=== PATIENT | female | born 1970 | race African-American/Black ===

== ENCOUNTER 2016-07-19 20:12 | Emergency (ER) | payer BC ==
[~2016-07-19] VITALS: Ht 154.9 cm; Wt 88.1 kg
[~2016-07-19 20:12] MED LIST: ENDOCET 5-3251 EACH PO; HYDROCHLOROTHIA25 MG PO; NOHOMEMEDS; Omega III EPA + DHA PO; THERAGRAN1 TABLET PO
[2016-07-19 23:08] LABS: MCH 34.9 PG (29.0-34.0); MCHC 33.9 G/DL (30.0-36.0); PLATELET COUNT 184 K/uL (156-360); RBC DIS.WIDTH-CV 12.9 % (11.8-14.6); RBC DIS.WIDTH-SD 49.1 % (39-53); RED BLOOD COUNT 3.98 M/uL (3.80-5.20)
[2016-07-19 23:20] LABS: CHLORIDE 103 mEq/L (99-109); SODIUM 137 mEq/L (136-147)
[2016-07-19 23:22] LABS: GLUCOSE 84 mg/dL (70-99)
[2016-07-19 23:23] LABS: ANION GAP 13 MEQ/L (2-14)
[2016-07-19 23:24] LABS: TOTAL BILIRUBIN 0.5 mg/dL (0.0-1.0)
[2016-07-19 23:26] LABS: ALKALINE PHOSPHATASE 77 IU/L (3-129); GFR ESTIMATE (CALCULATED) > 59 mL/min/
[2016-07-19 23:27] LABS: UREA NITROGEN (BUN) 10 mg/dL (9-23)
[2016-07-19 23:33] LABS: PROTHROMBIN TIME 9.9 (9.2-11.2); PTT 24.5 (25-32)
[2016-07-19 23:45] VITALS: BP 163/106
== END 2016-07-19 23:46 | disposition home or self-care (01) ==
LOC: EME 20:12
PROVIDERS: Physician Assistant
DX: R21 Rash and other nonspecific skin eruption (principal); Z91.013 Allergy to seafood
CPT/HCPCS: 80053; 85027; 85610; 85730; 99281; 99283

== ENCOUNTER 2017-03-20 17:22 | Emergency (ER) | payer BC ==
[~2017-03-20] VITALS: Ht 154.9 cm; Wt 77.7 kg
[2017-03-20 21:47] VITALS: BP 155/97
== END 2017-03-20 21:58 | disposition home or self-care (01) ==
LOC: EME 17:22
DX: B34.9 Viral infection, unspecified (principal)
CPT/HCPCS: 71046; 87651 90; 99281; 99284; J1885; J2405; J7030

== ENCOUNTER 2017-04-14 18:56 | Inpatient (IN) | payer BC ==
[~2017-04-14] VITALS: Ht 154.9 cm; Wt 103.8 kg
[2017-04-14 21:52] LABS: ALBUMIN 2.7 g/dL (3.2-4.8); CHLORIDE 100 mEq/L (99-109); POTASSIUM 2.7 mEq/L (3.7-5.4); SODIUM 137 mEq/L (136-147)
[2017-04-14 21:55] LABS: GLUCOSE 103 mg/dL (70-99); TOTAL PROTEIN 5.9 g/dL (6.4-8.3)
[2017-04-14 21:58] LABS: ALKALINE PHOSPHATASE 192 IU/L (3-129); SERUM ETHYL ALCOHOL < 10 mg/dL
[2017-04-14 21:59] LABS: CREATININE 0.8 mg/dL (0.6-1.3); GFR ESTIMATE (CALCULATED) > 59 mL/min/
[2017-04-14 22:00] LABS: AST (GOT) 391 IU/L (2-34); UREA NITROGEN (BUN) 3 mg/dL (9-23)
[2017-04-14 22:01] LABS: ALT (GPT) 154 IU/L (3-49)
[2017-04-14 22:02] LABS: LIPASE 30 U/L (1.0-51.0)
[2017-04-14 22:04] LABS: MAGNESIUM 0.5 mg/dL (1.3-2.7)
[2017-04-14 22:13] LABS: BASOPHIL (%) 0.5 % (0-1); EOSINOPHIL (%) 0.2 % (0-5); HEMATOCRIT 32.2 % (36.0-46.0); IMMATURE GRANULOCYTE (%) 0.3 % (0.0-0.7); LYMPHOCYTE (%) 15.8 % (15-42); LYMPHOCYTE COUNT 0.9 K/uL (1.0-2.8); MCHC 37.3 G/DL (30.0-36.0); MCV 93.9 FL (83-99); MONOCYTE (%) 10.6 % (3-12); MONOCYTE COUNT 0.6 K/uL (0-0.8); NEUTROPHIL (%) 72.6 % (45-76); NEUTROPHIL COUNT 4.2 K/uL (1.8-6.4); NRBC (%) 0.3 /100 WBC (0-0); PLATELET COUNT 194 K/uL (156-360); RBC DIS.WIDTH-CV 13.3 % (11.8-14.6); RBC DIS.WIDTH-SD 45.4 % (39-53); RED BLOOD COUNT 3.43 M/uL (3.80-5.20); WHITE BLOOD COUNT 5.8 K/uL (4.1-10.2)
[2017-04-14 22:36] LABS: TROP-I INTERPRETATION NEGATIVE; TROPONIN-I < 0.01 ng/mL (0.0-0.30)
[2017-04-15] VITALS (9 sets, daily range): BP systolic 104–120; BP diastolic 72–86
[2017-04-15] MEDS ORDERED: COMPAZINE10 MG PO (00:41)
[2017-04-15] MEDS ORDERED: PROAIR HFA8.5 GM IH (00:42)
[2017-04-15 00:48] LABS: CARBON DIOXIDE (BICARBONATE) 13.7 MEQ/L (20-31)
[2017-04-15 00:55] LABS: MAGNESIUM 1.7 mg/dL (1.3-2.7)
[2017-04-15 01:33] LABS: CHLORIDE 101 mEq/L (99-109); POTASSIUM 2.8 mEq/L (3.7-5.4); SODIUM 134 mEq/L (136-147)
[2017-04-15 01:34] LABS: GLUCOSE 103 mg/dL (70-99)
[2017-04-15 01:38] LABS: CREATININE 0.8 mg/dL (0.6-1.3); GFR ESTIMATE (CALCULATED) > 59 mL/min/
[2017-04-15 01:39] LABS: UREA NITROGEN (BUN) 3 mg/dL (9-23)
[2017-04-15 03:07] LABS: APPEARANCE SL.HAZY ((CLEAR)); BILIRUBIN SMALL; BLOOD SMALL; COLOR AMBER ((YELLOW)); GLUCOSE (STRIP) NEGATIVE; KETONES 5; LEUKOCYTES NEGATIVE; NITRITE NEGATIVE; PROTEIN (STRIP) 30
[2017-04-15 03:15] LABS: AMPHETAMINE NEGATIVE (500 ng/mL); BARBITURATES NEGATIVE (200 ng/mL); BENZODIAZEPINES PRESUMPTIVE POSITIVE (150 ng/mL); BUPRENORPHINE NEGATIVE (10 ng/mL); COCAINE NEGATIVE (150 ng/mL); METHADONE NEGATIVE (200 ng/mL); METHAMPHETAMINE NEGATIVE (500 ng/mL); OPIATES (MORPHINE) NEGATIVE (100 ng/mL); OXYCODONE NEGATIVE (100 ng/mL); PHENCYCLIDINE NEGATIVE (25 ng/mL); PROPOXYPHENE NEGATIVE (300 ng/mL); THC CANNABINOIDS NEGATIVE (50 ng/mL); TRICYCLIC ANTIDEPRESSANTS NEGATIVE (300 ng/mL)
[2017-04-15 03:35] LABS: EPITHELIAL CELLS RARE /HPF; MUCUS 2+ /LPF; RED BLOOD CELLS 0-5 /HPF (0-5); WHITE BLOOD CELLS 0-5 /HPF (0-5)
[2017-04-15 03:36] LABS: BACTERIA 1+ /HPF
[2017-04-15 03:38] LABS: SPECIFIC GRAVITY 1.065 (1.000-1.030)
[2017-04-15 05:04] LABS: BENZODIAZEPINES, URINE SCREEN Negative (200 ng/mL)
[2017-04-15 12:16] LABS: CHLORIDE 102 MEQ/L (99-109); CREATININE 0.8 MG/DL (0.6-1.3); GFR ESTIMATE (CALCULATED) > 59 mL/min/; MAGNESIUM 1.8 mg/dl (1.3-2.7); PHOSPHORUS 1.9 mg/dL (2.5-4.9); SODIUM 135 MEQ/L (136-147); UREA NITROGEN (BUN) 3 mg/dL (9-23)
[2017-04-15 12:17] LABS: GLUCOSE 161 mg/dL (70-99)
[2017-04-16] VITALS (15 sets, daily range): BP systolic 101–123; BP diastolic 71–98
[2017-04-16 05:20] LABS: C DIFF TOXIN NEGATIVE (NEGATIVE)
[2017-04-16 08:16] LABS: ALBUMIN 2.4 G/DL (3.2-4.8); ALKALINE PHOSPHATASE 162 IU/L (3-129); ALT (GPT) 127 IU/L (3-49); AST (GOT) 320 IU/L (2-34); CHLORIDE 108 MEQ/L (99-109); CREATININE 0.7 MG/DL (0.6-1.3); GFR ESTIMATE (CALCULATED) > 59 mL/min/; PHOSPHORUS 1.4 mg/dL (2.5-4.9); POTASSIUM 3.5 MEQ/L (3.7-5.4); SODIUM 136 MEQ/L (136-147); TOTAL BILIRUBIN 2.5 MG/DL (0.0-1.0); TOTAL PROTEIN 5.2 G/DL (6.4-8.3); UREA NITROGEN (BUN) 3 mg/dL (9-23)
[2017-04-16 08:20] LABS: GLUCOSE 117 mg/dL (70-99); MAGNESIUM 1.3 mg/dl (1.3-2.7)
[2017-04-16 08:31] LABS: LIPASE 29 U/L (1.0-51.0)
[2017-04-16 09:09] LABS: BASE EXCESS -12.2 mEq/L (-3 to +3); CARBOXY HGB 1.6 % (0-5); METHEMOGLOBIN 1.5 % (0-1.5); PCO2 19 mm Hg (35-45); PO2 110 mm Hg (80-100); pH 7.37 (7.35-7.45)
[2017-04-16 09:10] LABS: COMMENTS - BLOOD GASES A+C+; SITE RR
[2017-04-17] VITALS (14 sets, daily range): BP systolic 99–120; BP diastolic 66–89
[2017-04-17 04:59] LABS: BASOPHIL (%) 1.1 % (0-1); EOSINOPHIL (%) 2.5 % (0-5); EOSINOPHIL COUNT 0.1 K/uL (0-0.3); HEMATOCRIT 28.5 % (36.0-46.0); HEMOGLOBIN 10.4 G/DL (11.9-15.5); IMMATURE GRANULOCYTE (%) 1.1 % (0.0-0.7); LYMPHOCYTE (%) 34.7 % (15-42); LYMPHOCYTE COUNT 1.3 K/uL (1.0-2.8); MCH 35.4 PG (29.0-34.0); MCHC 36.5 G/DL (30.0-36.0); MCV 96.9 FL (83-99); MONOCYTE (%) 10.7 % (3-12); MONOCYTE COUNT 0.4 K/uL (0-0.8); NEUTROPHIL (%) 49.9 % (45-76); NEUTROPHIL COUNT 1.8 K/uL (1.8-6.4); PLATELET COUNT 169 K/uL (156-360); RBC DIS.WIDTH-CV 14.5 % (11.8-14.6); RBC DIS.WIDTH-SD 50.9 % (39-53); RED BLOOD COUNT 2.94 M/uL (3.80-5.20); WHITE BLOOD COUNT 3.7 K/uL (4.1-10.2)
[2017-04-17 05:19] LABS: ALBUMIN 2.2 g/dL (3.2-4.8); SODIUM 137 mEq/L (136-147)
[2017-04-17 05:23] LABS: TOTAL BILIRUBIN 2.4 mg/dL (0.0-1.0)
[2017-04-17 05:25] LABS: ALKALINE PHOSPHATASE 178 IU/L (3-129); CREATININE 0.6 mg/dL (0.6-1.3); GFR ESTIMATE (CALCULATED) > 59 mL/min/
[2017-04-17 05:26] LABS: UREA NITROGEN (BUN) 2 mg/dL (9-23)
[2017-04-17 05:27] LABS: AST (GOT) 266 IU/L (2-34); DIRECT BILIRUBIN 1.9 mg/dL (0.0-0.3)
[2017-04-17 05:28] LABS: ALT (GPT) 132 IU/L (3-49)
[2017-04-17 05:37] LABS: CHLORIDE 113 mEq/L (99-109); GLUCOSE 78 mg/dL (70-99); TOTAL PROTEIN 4.7 g/dL (6.4-8.3)
[2017-04-18] VITALS (13 sets, daily range): BP systolic 94–126; BP diastolic 70–98
[2017-04-18 06:44] LABS: ALBUMIN 2.2 G/DL (3.2-4.8); ALKALINE PHOSPHATASE 162 IU/L (3-129); ALT (GPT) 104 IU/L (3-49); AST (GOT) 199 IU/L (2-34); CHLORIDE 111 MEQ/L (99-109); CREATININE 0.6 MG/DL (0.6-1.3); DIRECT BILIRUBIN 1.5 mg/dL (0.0-0.3); GFR ESTIMATE (CALCULATED) > 59 mL/min/; GLUCOSE 89 mg/dL (70-99); PHOSPHORUS 1.6 mg/dL (2.5-4.9); POTASSIUM 3.1 MEQ/L (3.7-5.4); SODIUM 138 MEQ/L (136-147); TOTAL BILIRUBIN 2.5 MG/DL (0.0-1.0); TOTAL PROTEIN 4.9 G/DL (6.4-8.3); UREA NITROGEN (BUN) 2 mg/dL (9-23)
[2017-04-19 07:00] VITALS: BP 107/84
[2017-04-19 09:57] LABS: ALBUMIN 2.1 G/DL (3.2-4.8); ALKALINE PHOSPHATASE 181 IU/L (3-129); ALT (GPT) 107 IU/L (3-49); AST (GOT) 219 IU/L (2-34); CHLORIDE 114 MEQ/L (99-109); CREATININE 0.5 MG/DL (0.6-1.3); GFR ESTIMATE (CALCULATED) > 59 mL/min/; GLUCOSE 86 mg/dL (70-99); PHOSPHORUS 1.3 mg/dL (2.5-4.9); POTASSIUM 3.2 MEQ/L (3.7-5.4); SODIUM 140 MEQ/L (136-147); TOTAL BILIRUBIN 2.5 MG/DL (0.0-1.0); TOTAL PROTEIN 4.7 G/DL (6.4-8.3); UREA NITROGEN (BUN) 2 mg/dL (9-23)
[2017-04-19 13:16] VITALS: BP 118/92
[2017-04-19 16:00] VITALS: BP 119/91
[2017-04-19 19:00] VITALS: BP 99/83
[2017-04-19 22:00] VITALS: BP 106/73
[2017-04-20] VITALS (7 sets, daily range): BP systolic 90–119; BP diastolic 58–85
[2017-04-20 06:16] LABS: BASOPHIL (%) 1.2 % (0-1); EOSINOPHIL (%) 2.9 % (0-5); EOSINOPHIL COUNT 0.1 K/uL (0-0.3); HEMATOCRIT 29.3 % (36.0-46.0); HEMOGLOBIN 10.4 G/DL (11.9-15.5); IMMATURE GRANULOCYTE (%) 0.3 % (0.0-0.7); LYMPHOCYTE (%) 30.5 % (15-42); LYMPHOCYTE COUNT 1.1 K/uL (1.0-2.8); MCH 34.8 PG (29.0-34.0); MCHC 35.5 G/DL (30.0-36.0); MONOCYTE (%) 18.7 % (3-12); MONOCYTE COUNT 0.7 K/uL (0-0.8); NEUTROPHIL (%) 46.4 % (45-76); NEUTROPHIL COUNT 1.6 K/uL (1.8-6.4); PLATELET COUNT 210 K/uL (156-360); RBC DIS.WIDTH-CV 17.2 % (11.8-14.6); RBC DIS.WIDTH-SD 59.7 % (39-53); RED BLOOD COUNT 2.99 M/uL (3.80-5.20); WHITE BLOOD COUNT 3.5 K/uL (4.1-10.2)
[2017-04-20 06:57] LABS: ALBUMIN 1.9 G/DL (3.2-4.8); ALKALINE PHOSPHATASE 176 IU/L (3-129); ALT (GPT) 99 IU/L (3-49); AST (GOT) 205 IU/L (2-34); CHLORIDE 114 MEQ/L (99-109); CREATINE KINASE 489 IU/L (1-294); CREATININE 0.6 MG/DL (0.6-1.3); GFR ESTIMATE (CALCULATED) > 59 mL/min/; GLUCOSE 77 mg/dL (70-99); MAGNESIUM 1.4 mg/dl (1.3-2.7); PHOSPHORUS 1.9 mg/dL (2.5-4.9); POTASSIUM 3.3 MEQ/L (3.7-5.4); SODIUM 142 MEQ/L (136-147); TOTAL BILIRUBIN 2.6 MG/DL (0.0-1.0); TOTAL PROTEIN 4.5 G/DL (6.4-8.3); UREA NITROGEN (BUN) 2 mg/dL (9-23)
[2017-04-20 11:44] LABS: HEPATITIS B SURFACE ANTIGEN Nonreactive; HEPATITIS C ANTIBODY Nonreactive
[2017-04-20 11:45] LABS: ANTI-HEPATITIS A VIRUS (IGM) Nonreactive
[2017-04-20 11:46] LABS: ANTI-HEPATITIS B CORE (IGM) Nonreactive
[2017-04-21] VITALS (8 sets, daily range): BP systolic 86–124; BP diastolic 55–88
[2017-04-21 06:01] LABS: HEMOGLOBIN 10.4 G/DL (11.9-15.5); MCH 34.4 PG (29.0-34.0); MCHC 34.7 G/DL (30.0-36.0); MCV 99.3 FL (83-99); PLATELET COUNT 247 K/uL (156-360); RBC DIS.WIDTH-SD 65.1 % (39-53); RED BLOOD COUNT 3.02 M/uL (3.80-5.20); WHITE BLOOD COUNT 3.5 K/uL (4.1-10.2)
[2017-04-21 06:50] LABS: CHLORIDE 112 MEQ/L (99-109); CREATINE KINASE 451 IU/L (1-294); CREATININE 0.6 MG/DL (0.6-1.3); GFR ESTIMATE (CALCULATED) > 59 mL/min/; GLUCOSE 90 mg/dL (70-99); POTASSIUM 3.4 MEQ/L (3.7-5.4); SODIUM 139 MEQ/L (136-147); UREA NITROGEN (BUN) 2 mg/dL (9-23)
[2017-04-21 06:51] LABS: MAGNESIUM 1.9 mg/dl (1.3-2.7); PHOSPHORUS 3.7 mg/dL (2.5-4.9)
[2017-04-21 07:54] LABS: INTACT PARATHYROID HORMONE 214 pg/mL (10-69)
[2017-04-22] VITALS: BP 100/66
[2017-04-22 04:00] VITALS: BP 111/80
[2017-04-22 05:42] LABS: HEMATOCRIT 28.6 % (36.0-46.0); HEMOGLOBIN 10.1 G/DL (11.9-15.5); MCH 34.9 PG (29.0-34.0); MCHC 35.3 G/DL (30.0-36.0); PLATELET COUNT 259 K/uL (156-360); RBC DIS.WIDTH-CV 18.2 % (11.8-14.6); RED BLOOD COUNT 2.89 M/uL (3.80-5.20); WHITE BLOOD COUNT 4.5 K/uL (4.1-10.2)
[2017-04-22 06:17] LABS: ALBUMIN 1.9 G/DL (3.2-4.8); ALKALINE PHOSPHATASE 169 IU/L (3-129); ALT (GPT) 82 IU/L (3-49); AST (GOT) 142 IU/L (2-34); CHLORIDE 110 MEQ/L (99-109); CHLORIDE 112 MEQ/L (99-109); CREATININE 0.6 MG/DL (0.6-1.3); GFR ESTIMATE (CALCULATED) > 59 mL/min/; GLUCOSE 95 mg/dL (70-99); GLUCOSE 96 mg/dL (70-99); PHOSPHORUS 4.3 mg/dL (2.5-4.9); POTASSIUM 3.8 MEQ/L (3.7-5.4); POTASSIUM 4.1 MEQ/L (3.7-5.4); SODIUM 141 MEQ/L (136-147); SODIUM 142 MEQ/L (136-147); TOTAL PROTEIN 4.7 G/DL (6.4-8.3); UREA NITROGEN (BUN) 3 mg/dL (9-23)
[2017-04-22 06:19] LABS: BASOPHIL (%) 1.1 % (0-1); BASOPHIL COUNT 0.1 K/uL (0-0.1); EOSINOPHIL (%) 2.9 % (0-5); EOSINOPHIL COUNT 0.1 K/uL (0-0.3); IMMATURE GRANULOCYTE (%) 0.2 % (0.0-0.7); LYMPHOCYTE (%) 31.5 % (15-42); LYMPHOCYTE COUNT 1.4 K/uL (1.0-2.8); MONOCYTE (%) 20.8 % (3-12); MONOCYTE COUNT 0.9 K/uL (0-0.8); NEUTROPHIL (%) 43.5 % (45-76); NEUTROPHIL COUNT 1.9 K/uL (1.8-6.4)
[2017-04-22 08:00] VITALS: BP 116/66
[2017-04-22 12:00] VITALS: BP 131/90
[2017-04-22 16:42] VITALS: BP 134/70
[2017-04-22 20:00] VITALS: BP 124/88
[2017-04-23 00:12] VITALS: BP 94/51
[2017-04-23 04:34] VITALS: BP 103/59
[2017-04-23 06:13] LABS: ALBUMIN 1.9 G/DL (3.2-4.8); CHLORIDE 112 MEQ/L (99-109); CREATININE 0.6 MG/DL (0.6-1.3); GFR ESTIMATE (CALCULATED) > 59 mL/min/; GLUCOSE 83 mg/dL (70-99); PHOSPHORUS 4.3 mg/dL (2.5-4.9); POTASSIUM 3.8 MEQ/L (3.7-5.4); SODIUM 143 MEQ/L (136-147); UREA NITROGEN (BUN) 3 mg/dL (9-23)
[2017-04-23 06:14] LABS: ALBUMIN 1.9 G/DL (3.2-4.8); ALKALINE PHOSPHATASE 177 IU/L (3-129); ALT (GPT) 71 IU/L (3-49); AST (GOT) 116 IU/L (2-34); CHLORIDE 111 MEQ/L (99-109); CREATININE 0.6 MG/DL (0.6-1.3); GFR ESTIMATE (CALCULATED) > 59 mL/min/; GLUCOSE 84 mg/dL (70-99); POTASSIUM 4.2 MEQ/L (3.7-5.4); SODIUM 142 MEQ/L (136-147); TOTAL BILIRUBIN 3.5 MG/DL (0.0-1.0); TOTAL PROTEIN 4.5 G/DL (6.4-8.3); UREA NITROGEN (BUN) 3 mg/dL (9-23)
[2017-04-23 08:35] VITALS: BP 97/59
[2017-04-23 12:28] VITALS: BP 104/63
[2017-04-23 16:13] VITALS: BP 115/59
[2017-04-23 19:20] VITALS: BP 110/62
[2017-04-24 00:11] VITALS: BP 106/55
[2017-04-24 05:09] VITALS: BP 110/60
[2017-04-24 05:42] LABS: INTER. NORMALIZED RATIO 1.4
[2017-04-24 05:45] LABS: PTT 36.6 SEC (25-37)
[2017-04-24 05:47] LABS: ALBUMIN 1.8 G/DL (3.2-4.8); ALKALINE PHOSPHATASE 153 IU/L (3-129); ALT (GPT) 64 IU/L (3-49); AST (GOT) 105 IU/L (2-34); CHLORIDE 109 MEQ/L (99-109); CREATININE 0.9 MG/DL (0.6-1.3); GFR ESTIMATE (CALCULATED) > 59 mL/min/; GLUCOSE 75 mg/dL (70-99); MAGNESIUM 1.3 mg/dl (1.3-2.7); POTASSIUM 3.4 MEQ/L (3.7-5.4); SODIUM 143 MEQ/L (136-147); TOTAL BILIRUBIN 3.5 MG/DL (0.0-1.0); TOTAL PROTEIN 4.7 G/DL (6.4-8.3); UREA NITROGEN (BUN) 3 mg/dL (9-23)
[2017-04-24 05:51] LABS: ALBUMIN 1.8 G/DL (3.2-4.8); CHLORIDE 108 MEQ/L (99-109); CREATININE 0.9 MG/DL (0.6-1.3); GFR ESTIMATE (CALCULATED) > 59 mL/min/; GLUCOSE 75 mg/dL (70-99); PHOSPHORUS 4.3 mg/dL (2.5-4.9); SODIUM 141 MEQ/L (136-147); UREA NITROGEN (BUN) 3 mg/dL (9-23)
[2017-04-24 05:59] LABS: POTASSIUM 3.3 MEQ/L (3.7-5.4)
[2017-04-24 07:44] VITALS: BP 100/59
[2017-04-24 11:29] VITALS: BP 103/61
[2017-04-24 15:45] VITALS: BP 104/56
[2017-04-24 19:45] VITALS: BP 110/60
[2017-04-25 05:58] LABS: ALBUMIN 1.8 G/DL (3.2-4.8); CHLORIDE 106 MEQ/L (99-109); CREATININE 0.9 MG/DL (0.6-1.3); GFR ESTIMATE (CALCULATED) > 59 mL/min/; GLUCOSE 79 mg/dL (70-99); POTASSIUM 3.7 MEQ/L (3.7-5.4); SODIUM 142 MEQ/L (136-147); UREA NITROGEN (BUN) 5 mg/dL (9-23)
[2017-04-25 08:37] LABS: ALKALINE PHOSPHATASE 153 IU/L (3-129); ALT (GPT) 65 IU/L (3-49); AST (GOT) 118 IU/L (2-34); DIRECT BILIRUBIN 2.3 mg/dL (0.0-0.3); TOTAL BILIRUBIN 3.6 MG/DL (0.0-1.0); TOTAL PROTEIN 4.7 G/DL (6.4-8.3)
[2017-04-25] MEDS ORDERED: LOPRESSOR25 MG PO (11:34)
[2017-04-25] MEDS ORDERED: SPIRONOLACTONE25 MG PO (11:34)
[2017-04-25] MEDS ORDERED: TRAMADOL HCL50 MG PO (11:34)
[2017-04-25] MEDS ORDERED: MAG-OXIDE400 MG PO (11:36)
[2017-04-25] MEDS ORDERED: Thiamine,Vitamin B1 PO (11:36)
[2017-04-25] MEDS ORDERED: FOLIC ACID1 MG PO (11:36)
[2017-04-25] MEDS ORDERED: PARICALCITOL1 MCG PO (11:37)
[2017-04-25] MEDS ORDERED: VITAMIN D2000 UNI1 PO (11:45)
[2017-04-25] MEDS ORDERED: LASIX80 MG PO (11:48)
[2017-04-25] MEDS ORDERED: K-DUR20 MEQ PO (11:49)
== END 2017-04-25 14:05 | DRG 432 ==
LOC: EME 18:56 → EDOF 04-15 03:22 → 4WEST 04-15 03:22 → 5SOUTH 04-15 03:22 → ENRESERV 04-15 03:24 → CANRESERV 04-15 03:24 → ENRESERV 04-15 03:41 → 5SOUTH 04-15 07:10 → ENRESERV 04-15 08:52 → 4WEST 04-15 12:39 → ENRESERV 04-22 18:48 → 4EAST 04-23 00:08 → ENRESERV 04-23 21:39 → 3EAST 04-23 23:47
PROVIDERS: Emergency Medicine; Hospitalist; Internal Medicine; Internal Medicine Nephrology; Student in an Organized Health Care Education/Training Program
DX: K70.10 Alcoholic hepatitis without ascites (principal); K52.9 Noninfective gastroenteritis and colitis, unspecified; F10.231 Alcohol dependence with withdrawal delirium; K70.0 Alcoholic fatty liver; K82.8 Other specified diseases of gallbladder; K85.20 Alcohol induced acute pancreatitis without necrosis or infection; E83.39 Other disorders of phosphorus metabolism; E43 Unspecified severe protein-calorie malnutrition; E83.42 Hypomagnesemia; E83.51 Hypocalcemia; E83.52 Hypercalcemia; E86.0 Dehydration; E87.2 Acidosis; E87.6 Hypokalemia; G47.30 Sleep apnea, unspecified; F33.1 Major depressive disorder, recurrent, moderate; E66.9 Obesity, unspecified; Z68.41 Body mass index [BMI] 40.0-44.9, adult; I10 Essential (primary) hypertension; J45.20 Mild intermittent asthma, uncomplicated; M25.552 Pain in left hip; R00.0 Tachycardia, unspecified; R60.0 Localized edema; R74.0 Nonspecific elevation of levels of transaminase and lactic acid dehydrogenase [LDH]; Z98.84 Bariatric surgery status
CPT/HCPCS: 36600; 71045; 74177; 76705; 80048; 80048 91; 80053; 80069; 80074; 80076; 81003; 82140; 82306; 82330; 82550; 82803; 83605; 83690; 83735; 83970; 84100; 84484; 84999; 85025; 85027; 85610; 85730; 87040; 87086; 87493; 87506; 87641; 93005; 97530 GO; 97530 GP; 99281; 99285; C1753; G0480; J0610; J1650; J1940; J2060; J2405; J3411; J3475; J3480; J7030; J7040; J7050; S0028

== ENCOUNTER 2017-04-25 10:29 | Inpatient (IN) | payer BC ==
[~2017-04-25] VITALS: Ht 154.9 cm; Wt 105.3 kg
[~2017-04-25 10:29] MED LIST changes: +COMPAZINE10 MG PO; +PROAIR HFA8.5 GM IH
[2017-04-25] MEDS ORDERED: LOPRESSOR25 MG PO (11:34)
[2017-04-25] MEDS ORDERED: TRAMADOL HCL50 MG PO (11:34)
[2017-04-25] MEDS ORDERED: SPIRONOLACTONE25 MG PO (11:34)
[2017-04-25] MEDS ORDERED: FOLIC ACID1 MG PO (11:36)
[2017-04-25] MEDS ORDERED: Thiamine,Vitamin B1 PO (11:36)
[2017-04-25] MEDS ORDERED: MAG-OXIDE400 MG PO (11:36)
[2017-04-25] MEDS ORDERED: PARICALCITOL1 MCG PO (11:37)
[2017-04-25] MEDS ORDERED: VITAMIN D2000 UNI1 PO (11:45)
[2017-04-25] MEDS ORDERED: LASIX80 MG PO (11:48)
[2017-04-25] MEDS ORDERED: K-DUR20 MEQ PO (11:49)
[2017-04-25 15:06] VITALS: BP 95/66
[2017-04-26 05:04] VITALS: BP 99/51
[2017-04-26 06:35] LABS: HEMATOCRIT 27.4 % (36.0-46.0); HEMOGLOBIN 9.2 G/DL (11.9-15.5); MCH 33.8 PG (29.0-34.0); MCHC 33.6 G/DL (30.0-36.0); MCV 100.7 FL (83-99); RBC DIS.WIDTH-SD 62.5 % (39-53); RED BLOOD COUNT 2.72 M/uL (3.80-5.20); WHITE BLOOD COUNT 4.4 K/uL (4.1-10.2)
[2017-04-26 07:07] LABS: PLATELET CLUMPS PRESENT - PLATELET COUNT APPEARS ADQ.; PLATELET COUNT UNABLE TO REPORT K/uL (156-360)
[2017-04-26 07:08] LABS: ALBUMIN 1.8 G/DL (3.2-4.8); ALKALINE PHOSPHATASE 149 IU/L (3-129); ALT (GPT) 58 IU/L (3-49); AST (GOT) 114 IU/L (2-34); CHLORIDE 105 MEQ/L (99-109); CREATININE 0.8 MG/DL (0.6-1.3); GFR ESTIMATE (CALCULATED) > 59 mL/min/; GLUCOSE 83 mg/dL (70-99); POTASSIUM 3.3 MEQ/L (3.7-5.4); SODIUM 142 MEQ/L (136-147); TOTAL BILIRUBIN 3.2 MG/DL (0.0-1.0); TOTAL PROTEIN 4.8 G/DL (6.4-8.3); UREA NITROGEN (BUN) 5 mg/dL (9-23)
[2017-04-26 15:35] VITALS: BP 118/51
[2017-04-27 05:34] VITALS: BP 95/57
[2017-04-27 06:52] LABS: ALBUMIN 1.9 G/DL (3.2-4.8); ALKALINE PHOSPHATASE 150 IU/L (3-129); ALT (GPT) 58 IU/L (3-49); AST (GOT) 121 IU/L (2-34); CHLORIDE 101 MEQ/L (99-109); CREATININE 0.8 MG/DL (0.6-1.3); GFR ESTIMATE (CALCULATED) > 59 mL/min/; GLUCOSE 96 mg/dL (70-99); MAGNESIUM 1.4 mg/dl (1.3-2.7); PHOSPHORUS 3.1 mg/dL (2.5-4.9); POTASSIUM 3.3 MEQ/L (3.7-5.4); UREA NITROGEN (BUN) 5 mg/dL (9-23)
[2017-04-27 06:53] LABS: SODIUM 133 MEQ/L (136-147); TOTAL BILIRUBIN 4.4 MG/DL (0.0-1.0)
[2017-04-27 15:31] VITALS: BP 122/54
[2017-04-28 04:49] VITALS: BP 99/57
[2017-04-28 06:04] LABS: ALBUMIN 1.9 G/DL (3.2-4.8); CREATININE 0.8 MG/DL (0.6-1.3); GFR ESTIMATE (CALCULATED) > 59 mL/min/; GLUCOSE 85 mg/dL (70-99); PHOSPHORUS 2.9 mg/dL (2.5-4.9); UREA NITROGEN (BUN) 6 mg/dL (9-23)
[2017-04-28 07:30] LABS: CHLORIDE 98 MEQ/L (99-109); POTASSIUM 3.5 MEQ/L (3.7-5.4); SODIUM 136 MEQ/L (136-147)
[2017-04-28 09:30] VITALS: BP 98/63
[2017-04-28 16:01] VITALS: BP 119/66
[2017-04-28 21:20] VITALS: BP 108/56
[2017-04-29 05:04] VITALS: BP 99/57
[2017-04-29 06:10] LABS: ALBUMIN 1.8 G/DL (3.2-4.8); CHLORIDE 102 MEQ/L (99-109); CREATININE 0.7 MG/DL (0.6-1.3); GFR ESTIMATE (CALCULATED) > 59 mL/min/; GLUCOSE 86 mg/dL (70-99); PHOSPHORUS 2.7 mg/dL (2.5-4.9); POTASSIUM 3.5 MEQ/L (3.7-5.4); SODIUM 139 MEQ/L (136-147); UREA NITROGEN (BUN) 6 mg/dL (9-23)
[2017-04-29 09:57] VITALS: BP 102/70
[2017-04-29 14:38] VITALS: BP 100/62
[2017-04-29 15:37] VITALS: BP 115/74
[2017-04-29 20:51] VITALS: BP 101/52
[2017-04-30 05:14] VITALS: BP 107/64
[2017-04-30 09:00] VITALS: BP 104/72
[2017-04-30 15:11] VITALS: BP 108/62
[2017-05-01 05:20] LABS: HEMATOCRIT 24.1 % (36.0-46.0); HEMOGLOBIN 8.1 G/DL (11.9-15.5); MCH 34.2 PG (29.0-34.0); MCHC 33.6 G/DL (30.0-36.0); MCV 101.7 FL (83-99); PLATELET COUNT 308 K/uL (156-360); RBC DIS.WIDTH-CV 16.5 % (11.8-14.6); RBC DIS.WIDTH-SD 61.1 % (39-53); RED BLOOD COUNT 2.37 M/uL (3.80-5.20)
[2017-05-01 06:14] VITALS: BP 103/59
[2017-05-01 07:03] VITALS: BP 100/58
[2017-05-01 07:07] LABS: ALBUMIN 1.7 G/DL (3.2-4.8); ALKALINE PHOSPHATASE 127 IU/L (3-129); ALT (GPT) 41 IU/L (3-49); AST (GOT) 93 IU/L (2-34); CHLORIDE 100 MEQ/L (99-109); CREATININE 0.6 MG/DL (0.6-1.3); DIRECT BILIRUBIN 2.4 mg/dL (0.0-0.3); GFR ESTIMATE (CALCULATED) > 59 mL/min/; GLUCOSE 92 mg/dL (70-99); IRON 80 MCG/DL (35-150); PHOSPHORUS 2.3 mg/dL (2.5-4.9); POTASSIUM 3.3 MEQ/L (3.7-5.4); SODIUM 136 MEQ/L (136-147); TOTAL BILIRUBIN 3.6 MG/DL (0.0-1.0); TOTAL PROTEIN 4.7 G/DL (6.4-8.3); TRANSFERRIN (TIBC) 75.5 mg/dL (215-380); TRANSFERRIN SATUR. 106 % (20-55); UREA NITROGEN (BUN) 5 mg/dL (9-23)
[2017-05-01 14:56] VITALS: BP 105/65
[2017-05-02 05:47] VITALS: BP 118/80
[2017-05-02 07:17] LABS: ALBUMIN 1.8 G/DL (3.2-4.8); CHLORIDE 101 MEQ/L (99-109); CREATININE 0.6 MG/DL (0.6-1.3); GFR ESTIMATE (CALCULATED) > 59 mL/min/; GLUCOSE 78 mg/dL (70-99); MAGNESIUM 1.6 mg/dl (1.3-2.7); PHOSPHORUS 3.1 mg/dL (2.5-4.9); POTASSIUM 3.6 MEQ/L (3.7-5.4); SODIUM 136 MEQ/L (136-147); UREA NITROGEN (BUN) 4 mg/dL (9-23)
[2017-05-02 07:45] VITALS: BP 121/78
[2017-05-02 15:12] VITALS: BP 114/77
[2017-05-03 06:20] VITALS: BP 90/54
[2017-05-03 06:36] LABS: ALBUMIN 1.7 G/DL (3.2-4.8); CHLORIDE 101 MEQ/L (99-109); CREATININE 0.7 MG/DL (0.6-1.3); GFR ESTIMATE (CALCULATED) > 59 mL/min/; GLUCOSE 84 mg/dL (70-99); PHOSPHORUS 3.3 mg/dL (2.5-4.9); POTASSIUM 3.6 MEQ/L (3.7-5.4); SODIUM 137 MEQ/L (136-147); UREA NITROGEN (BUN) 5 mg/dL (9-23)
[2017-05-03 08:11] VITALS: BP 114/70
[2017-05-03 15:58] VITALS: BP 99/67
[2017-05-04 05:38] VITALS: BP 121/73
[2017-05-04 14:49] VITALS: BP 108/68
[2017-05-05 06:08] VITALS: BP 106/62
[2017-05-05 14:48] VITALS: BP 116/82
[2017-05-06 06:10] VITALS: BP 110/59
[2017-05-06 16:08] VITALS: BP 113/71
[2017-05-07 06:14] VITALS: BP 114/75
[2017-05-07 08:04] LABS: HEMATOCRIT 22.6 % (36.0-46.0); HEMOGLOBIN 7.4 G/DL (11.9-15.5); MCH 33.8 PG (29.0-34.0); MCHC 32.7 G/DL (30.0-36.0); MCV 103.2 FL (83-99); NRBC (%) 0.2 /100 WBC (0-0); RBC DIS.WIDTH-CV 16.7 % (11.8-14.6); RBC DIS.WIDTH-SD 62.4 % (39-53); RED BLOOD COUNT 2.19 M/uL (3.80-5.20); WHITE BLOOD COUNT 12.6 K/uL (4.1-10.2)
[2017-05-07 08:18] LABS: PLATELET COUNT 558 K/uL (156-360)
[2017-05-07 08:32] LABS: ALKALINE PHOSPHATASE 125 IU/L (3-129); ALT (GPT) 30 IU/L (3-49); AST (GOT) 92 IU/L (2-34); CHLORIDE 103 MEQ/L (99-109); CREATININE 0.7 MG/DL (0.6-1.3); GFR ESTIMATE (CALCULATED) > 59 mL/min/; GLUCOSE 144 mg/dL (70-99); SODIUM 133 MEQ/L (136-147); TOTAL BILIRUBIN 4.2 MG/DL (0.0-1.0); TOTAL PROTEIN 5.4 G/DL (6.4-8.3); UREA NITROGEN (BUN) 5 mg/dL (9-23)
[2017-05-07 08:43] LABS: POTASSIUM 4.4 MEQ/L (3.7-5.4)
[2017-05-07 12:42] LABS: ANISOCYTOSIS 2+; MACROCYTES 2+; POLYCHROMASIA 1+; TARGET CELLS 1+
[2017-05-07 13:01] LABS: ABS NEUTROPHIL COUNT 10.5; ATYPICAL LYMPHOCYTE 1.8 %; BAND NEUTROPHILS 2.6 % (0-8.0); BASOPHILS 0.9 %; EOSINOPHIL ABS CT 0.1; EOSINOPHILS 0.9 % (0-5.0); LYMPHOCYTES 10.6 % (15.0-45.0); MONOCYTES 1.8 % (0-9.0); MYELOCYTES 0.9 %; SEG.NEUTROPHILS 80.5 % (46.0-76.0)
[2017-05-07 13:52] LABS: FERRITIN 651 NG/ML (10-291)
[2017-05-07 16:26] VITALS: BP 134/93
[2017-05-07 18:38] LABS: HEMATOCRIT 15.4 % (36.0-46.0); HEMOGLOBIN 4.1 G/DL (11.9-15.5); MCV 122.2 FL (83-99)
== END 2017-05-07 23:04 | DRG 945 ==
LOC: 3WEST 10:29 → ENPENDDIS 05-09
PROVIDERS: Internal Medicine Nephrology; Physical Medicine & Rehabilitation Pain Medicine; Physician Assistant Medical
PROC: F07M0ZZ Range of Motion and Joint Mobility Treatment of Musculoskeletal System - Whole Body (ICD-10-PCS; principal; 2017-04-25)
PROC: 06HM33Z Insertion of Infusion Device into Right Femoral Vein, Percutaneous Approach (ICD-10-PCS; 2017-05-07)
PROC: 5A12012 Performance of Cardiac Output, Single, Manual (ICD-10-PCS; 2017-05-07)
PROC: 0BH17EZ Insertion of Endotracheal Airway into Trachea, Via Natural or Artificial Opening (ICD-10-PCS; 2017-05-07)
DX: R53.1 Weakness (principal); K85.20 Alcohol induced acute pancreatitis without necrosis or infection; E87.2 Acidosis; E87.1 Hypo-osmolality and hyponatremia; K92.1 Melena; F05 Delirium due to known physiological condition; D62 Acute posthemorrhagic anemia; Z68.41 Body mass index [BMI] 40.0-44.9, adult; F33.9 Major depressive disorder, recurrent, unspecified; K70.10 Alcoholic hepatitis without ascites; E87.6 Hypokalemia; K70.0 Alcoholic fatty liver; M79.81 Nontraumatic hematoma of soft tissue; N94.89 Other specified conditions associated with female genital organs and menstrual cycle; E83.51 Hypocalcemia; E83.42 Hypomagnesemia; F10.20 Alcohol dependence, uncomplicated; E66.9 Obesity, unspecified; I46.9 Cardiac arrest, cause unspecified; E86.0 Dehydration; K80.20 Calculus of gallbladder without cholecystitis without obstruction; R00.0 Tachycardia, unspecified; D53.8 Other specified nutritional anemias; I10 Essential (primary) hypertension; E87.8 Other disorders of electrolyte and fluid balance, not elsewhere classified; D72.828 Other elevated white blood cell count; Y90.9 Presence of alcohol in blood, level not specified; D47.3 Essential (hemorrhagic) thrombocythemia; Z91.013 Allergy to seafood; Z98.84 Bariatric surgery status
CPT/HCPCS: 74176; 80053; 80069; 80076; 81003; 82272; 82607; 82728; 82746; 82948; 83090 90; 83540; 83690; 83735; 83921 90; 84466; 85007; 85014; 85018; 85025; 85027; 85060; 87040; 87077; 87186; 87801; 92523 GN; 92950; 93005; 93970; 97110 GO; 97530 GP; 99202; C1751; G0515 GO; J0171; J1650